=== PATIENT | male | born 1995 | race Caucasian/White ===

== ENCOUNTER 2019-11-01 15:16 | Emergency (ER) | payer BC ==
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
[2019-11-01] MEDS: fentaNYL 100 MCG/2 ML SDV IVPUSH PRN ×2 (17:30→17:59)
[2019-11-01] MEDS ORDERED: Acetaminophen/HYDROcodone 325-5 MG Tab PO ONE (18:42)
--- NOTE | 2019-11-02 07:49 | CR ---
Right ankle: 4 views of the right ankle were obtained. Comparison: No prior right ankle exam. Soft tissue swelling is noted. No acute fracture, dislocation or other bony abnormality is appreciated. Impression: 1. Soft tissue swelling. 2. No acute abnormality is seen within the right ankle. Diagnostic code #2 This report was dictated in MDT
--- NOTE | 2019-11-02 07:49 | CR ---
Right foot: 4 views right foot were obtained. Comparison: No prior foot exam. Fracture is identified within the cuboid bone. Unfused arse navicularis is noted. No additional fracture is seen on this study although additional fractures are probably present due to the degree of soft tissue swelling. Impression: 1. Foot fracture as noted above. 2. Diffuse soft tissue swelling. Diagnostic code #3 This report was dictated in MDT
--- NOTE | 2019-11-02 07:49 | CR ---
Right tibia and fibula: AP and lateral views of the right tibia and fibula were obtained. Comparison: No previous study. No acute fracture or other bony abnormality is seen. Midfoot fracture is again seen. Impression: 1. Previous midfoot fracture is again noted. 2. Nothing acute is seen within the right tibia or fibula. Diagnostic code #3 This report was dictated in MDT
--- NOTE | 2019-11-02 07:49 | CT ---
CT right foot Technique: Multiple axial sections through the right foot were obtained. Reconstructed coronal and sagittal images were reviewed. Findings: Fracture is identified in an oblique direction within the lateral and distal cuboid bone with articular extension. Oblique fracture is noted within the 3rd cuneiform bone. Fracture is also noted within the 2nd cuneiform bone which is also oblique in orientation. 1st cuneiform bone appears intact. Unfused last navicularis is seen. Fracture is noted within the base of the 4th metatarsal. Small avulsion fracture is noted off the distal corner of the 3rd cuneiform bone. Small avulsion fractures are identified off the corner bases of the 2nd metatarsal. Questionable small fracture within the distal 2nd metatarsal head. No additional bony abnormality is appreciated. Diffuse soft tissue swelling is noted. Impression: 1. Multiple tarsal fractures are noted as well as multiple metatarsal fractures. Probable injury of the Lisfranc ligament with no Lisfranc dislocation being seen at this time. Diagnostic code #5 This report was dictated in MDT I agree with preliminary report from [facility], finalized on 11/01/19, 7:14 PM Central Time
== END 2019-11-01 19:30 | disposition home or self-care (01) ==
LOC: JD.ED 15:16
DX: S92.321A Displaced fracture of second metatarsal bone, right foot, initial encounter for closed fracture (principal); S92.221A Displaced fracture of lateral cuneiform of right foot, initial encounter for closed fracture; S92.341A Displaced fracture of fourth metatarsal bone, right foot, initial encounter for closed fracture; S30.811A Abrasion of abdominal wall, initial encounter; S50.811A Abrasion of right forearm, initial encounter; V86.56XA Driver of dirt bike or motor/cross bike injured in nontraffic accident, initial encounter; Z79.899 Other long term (current) drug therapy
CPT/HCPCS: 73590; 73610; 73630; 73700; 96374; 99284; A9270; J3010; 99283